=== PATIENT | male | born 1990 | race African-American/Black ===

== ENCOUNTER 2021-02-25 10:42 | Emergency (ER) | payer OTHER ==
[~2021-02-25] VITALS: Ht 177.8 cm; Wt 82.7 kg
[2021-02-25 12:25] VITALS: BP 126/68
== END 2021-02-25 12:26 | disposition home or self-care (01) ==
LOC: M ED 10:42
DX: H69.90 Unspecified Eustachian tube disorder, unspecified ear (principal)